=== PATIENT | female | born 1995 | race Caucasian/White ===

== ENCOUNTER 2024-03-16 22:08 | Emergency (ER) | payer MEDICAID ==
[~2024-03-16] VITALS: Ht 154.9 cm; Wt 72.7 kg
[2024-03-16] MEDS ORDERED: Acetaminophen 325 MG TAB PO ONE (22:45)
[2024-03-16] MEDS ORDERED: Ibuprofen 400 MG TAB PO ONE (22:45)
[2024-03-16 22:55] LABS: BASO # 0.1 K/mm3 (0.0-0.2); BASO % 0.7 % (0.0-2.0); EOS # 0.5 K/mm3 (0.0-0.7); HEMATOCRIT 39.9 % (37.0-47.0); LYMPH # 4.5 K/mm3 (1.2-3.4); LYMPH % 45.4 % (20.0-51.0); MEAN CELL VOLUME 89 fl (80.0-100.0); MEAN CORPUSCULAR HEMOGLOBIN 29 pg (27-31); MEAN CORPUSCULAR HGB CONC 33 g/dl (33.0-37.0); MEAN PLATELET VOLUME 10.2 fl (7.4-10.4); MONO # 0.9 K/mm3 (0.1-0.6); MONO % 8.8 % (1.7-9.3); PLATELET COUNT 290 K/mm3 (130-400); RED BLOOD COUNT 4.51 M/mm3 (4.10-5.30); REDCELL DISTRIBUTION WIDTH-CV 13.9 % (11.5-14.5)
[2024-03-16 23:02] LABS: COLLECTION METHOD CLEAN CATCH
[2024-03-16 23:12] LABS: PH 5.5 (5.0-8.5); URINE APPEARANCE CLOUDY (CLEAR/HAZY); URINE BLOOD 3+ (NEGATIVE); URINE COLOR YELLOW (YELLOW); URINE GLUCOSE NEGATIVE (NEGATIVE); URINE KETONE NEGATIVE (NEGATIVE); URINE NITRATE NEGATIVE (NEGATIVE); URINE PROTEIN(semi-quant) NEGATIVE (NEGATIVE)
[2024-03-16 23:15] LABS: ALBUMIN 3.6 g/dL (3.5-5.0); BILIRUBIN,TOTAL 0.3 mg/dL (0.2-1.2); CALCIUM 9.2 mg/dL (8.4-10.2); CREATININE, serum 0.76 mg/dL (0.57-1.11); POTASSIUM 3.9 mEq/L (3.5-4.5); TOTAL PROTEIN 7.7 g/dl (6.2-8.1)
[2024-03-16 23:34] VITALS: BP 118/71; PULSE 91; TEMP 98.3
== END 2024-03-16 23:34 | disposition home or self-care (01) ==
LOC: COL.ER 22:08
PROVIDERS: Nurse Practitioner Primary Care
DX: N94.6 Dysmenorrhea, unspecified (principal)